=== PATIENT | female | born 1980 | race Hispanic/Latino ===

== ENCOUNTER 2018-12-10 13:55 | Emergency (ER) | payer OTHER ==
[~2018-12-10] VITALS: Ht 160 cm; Wt 69.9 kg
[2018-12-10 13:56] VITALS: BP 129/83
[2018-12-10] MEDS ORDERED: ROBA500T PO (14:45)
== END 2018-12-10 14:54 | disposition home or self-care (01) ==
LOC: M ED 13:55
DX: M62.830 Muscle spasm of back (principal)